=== PATIENT | male | born 1960 | race Caucasian/White ===

== ENCOUNTER 2019-11-25 11:28 | Emergency (ER) | payer OTHER, MEDICAID ==
[~2019-11-25] VITALS: Ht 172.7 cm; Wt 138.5 kg
--- NOTE | 2019-11-25 12:00 | NUR ---
THIS IS A 59 YO MALE WHO PRESENTS TO THE ER C/O INCREASING SOB WITH ACTIVITY OVER THE LAST FEW DAYS. PT HAS HX OF CHF. PT DENIES CP OR COUGH OR FEVERS. PT AO X 4. LARGE LAC NOTED TO LEFT FA. PT REPORTS HE HAD A SUICIDE ATTEMPT ON 11/10. PT STATES "I'M WORKING ON GETTING IN WITH A COUNSELOR, IN THE PAST THAT'S HELPED A LOT AND I'VE EVEN MADE AN APPOINTMENT AT THE [facility]". PT DENIES SI/HI TODAY AND HAS VERBALIZED PLAN FOR SEEKING MENTAL HEALTH CARE. EUSEBIO FAIR AND SERA VARGAS AWARE. PT ON CONT BP, CARDIAC AND O2 MONITORS. CALL LIGHT WITHIN REACH. WILL CONT TO MONITOR PT.
[2019-11-25] MEDS ORDERED: CARV-39 PO (12:01)
[2019-11-25] MEDS ORDERED: ASPI-515 PO (12:01)
[2019-11-25] MEDS ORDERED: AMLO10TA8 PO (12:01)
[2019-11-25] MEDS ORDERED: LOSA50TA14 PO (12:01)
[2019-11-25] MEDS ORDERED: FURO-93 PO (12:01)
[2019-11-25] MEDS ORDERED: ASPIRIN 81 MG TABLET CHEW ONE (12:19)
[2019-11-25] MEDS ORDERED: SODIUM CHLORIDE FLUSH 10ML SYR IVF ONE (12:30)
[2019-11-25] MEDS ORDERED: ASPIRIN 81 MG TABLET CHEW PO ONE (12:30)
[2019-11-25 12:36] LABS: BASOPHILS # (AUTO) 0.03 x10^3/uL (0-0.1); BASOPHILS % (AUTO) 0 % (0-1); EOSINOPHILS # (AUTO) 0.12 x10^3/uL (0-0.4); EOSINOPHILS % (AUTO) 2 % (1-7); LYMPHOCYTES # (AUTO) 1.69 x10^3/uL (1-3.4); LYMPHOCYTES % (AUTO) 21 % (22-44); MD NO; MEAN CORPUSCULAR HEMOGLOBIN 30.1 pg (27.5-34.5); MEAN CORPUSCULAR HGB CONC 33.8 g/dL (33.2-36.2); MONOCYTES # (AUTO) 0.51 x10^3/uL (0.2-0.8); MONOCYTES % (AUTO) 6 % (2-9); NEUTROPHILS # (AUTO) 5.68 x10^3/uL (1.8-6.8); NEUTROPHILS % (AUTO) 71 % (42-75); PLATELET COUNT 181 x10^3/uL (130-400); RED CELL DISTRIBUTION WIDTH 14.4 % (9.4-14.8)
--- NOTE | 2019-11-25 12:45 | NUR ---
requested records from [facility] in formerly [facility]
[2019-11-25 12:49] LABS: ALBUMIN 3.2 g/dL (3.4-5.0); CALCIUM 8.9 mg/dL (8.5-10.1); CREATININE 0.95 mg/dL (0.7-1.3)
[2019-11-25 12:52] LABS: TROPONIN I 0.024 ng/mL (0.000-0.045)
[2019-11-25 12:56] LABS: ANION GAP 6 mmol/L (5-15); CHLORIDE 112 mmol/L (98-107)
--- NOTE | 2019-11-25 13:58 | NUR ---
SUTURES REMOVED BY JUNE TORRES. 11 SUTURES TOTAL, ALL INTACT. PT VERBALIZES UNDERSTANDING OF WATCHING FOR INFECTION AND THAT HE SHOULD RETURN FOR WORSENING REDNESS, PUS OR FEVERS. PT AO X 4. SKIN PWD. RESP EVEN AND UNLABORED.
[2019-11-25 13:59] VITALS: BP 177/92
== END 2019-11-25 14:20 | disposition home or self-care (01) ==
LOC: ED 11:57
DX: R07.89 Other chest pain (principal); S51.812A Laceration without foreign body of left forearm, initial encounter; I10 Essential (primary) hypertension; R94.31 Abnormal electrocardiogram [ECG] [EKG]; Z48.02 Encounter for removal of sutures; I25.2 Old myocardial infarction; X58.XXXA Exposure to other specified factors, initial encounter; Y93.89 Activity, other specified; Y92.89 Other specified places as the place of occurrence of the external cause; Y99.8 Other external cause status
CPT/HCPCS: 36415; 71045; 80048; 82040; 83880; 84484; 85025; 93005; 99285